=== PATIENT | female | born 2000 | race Caucasian/White ===

== ENCOUNTER 2024-10-05 07:10 | Day surgery (SDC) | payer OTHER ==
[2024-10-05] MEDS: SODIUM CHLORIDE 0.9% 1,000 ML IV SCH (07:37)
[2024-10-05] MEDS: IV FLUID CONTINUATION 1,000 ML IV ONE (07:38)
[2024-10-05 07:41] VITALS: RESP 16; TEMP 98.5
[2024-10-05 08:51] VITALS: BP 130/67; PULSE 80
--- NOTE | 2024-10-05 16:16 | P.EPPROC ---
- EP Procedure Note Electrophysiology Procedure Note: Diagnosis Recurrent presyncope Twelve-lead EKG shows sinus rhythm Normal [place] narrow QRS normal ST segments normal QT interval Tilt table test per protocol Baseline blood pressure 119/58 mmHg, pulse rate 79 beats a minute Patient was tilted upright on maculas 70 degrees per protocol No change in heart rate and no significant change in blood pressure either no symptoms noted She was laid supine the end of the procedure Impression normal heart rate and blood pressure response to upright tilting Normal twelve-lead EKG
== END 2024-10-05 09:10 | disposition home or self-care (01) ==
LOC: CATHEP 07:10
PROVIDERS: ATTEND Internal Medicine Clinical Cardiac Electrophysiology
DX: R55 Syncope and collapse (principal); F32.A Depression, unspecified; F90.9 Attention-deficit hyperactivity disorder, unspecified type; D64.9 Anemia, unspecified; R00.0 Tachycardia, unspecified; Z91.040 Latex allergy status; Z79.899 Other long term (current) drug therapy
CPT/HCPCS: 84703; 93660